=== PATIENT | female | born 1995 | race Caucasian/White ===

== ENCOUNTER 2020-05-24 15:59 | Emergency (ER) | payer OTHER ==
[~2020-05-24] VITALS: Ht 167.6 cm; Wt 113.4 kg
[2020-05-24] MEDS ORDERED: CATAPRES0.1 MG PO (16:13)
[2020-05-24 17:15] VITALS: BP 96/52
== END 2020-05-24 17:20 | disposition home or self-care (01) ==
LOC: ER 15:59
DX: K80.80 Other cholelithiasis without obstruction (principal); M06.9 Rheumatoid arthritis, unspecified; Z79.899 Other long term (current) drug therapy